=== PATIENT | male | born 1975 | race Caucasian/White ===

== ENCOUNTER 2018-09-13 15:41 | Emergency (ER) | payer BC ==
[~2018-09-13] VITALS: Ht 172.7 cm; Wt 88.4 kg
[2018-09-13 15:44] VITALS: BP 126/75; PULSE 81; RESP 20; Ht 172.7 cm; Wt 88.4 kg
[2018-09-13] MEDS ORDERED: LIDOCAINE 1% (MDV) 10 ML INJ INJ STA (16:33)
--- NOTE | 2018-09-13 16:49 | ERD ---
ER Documentation Chief Complaint Chief Complaint R gomez deep laceration d/t ladder fell on leg HPI 43-year-old male presents with complaint of laceration to right gomez. Patient states that happened hour ago on the ladder dropped on his leg. Patient does not think he is up-to-date on his tetanus. Patient denies numbness or tingling. Patient is ambulatory and denies any pain. Patient denies past medical history. Denies allergies. Denies medications. No surgeries. Denies social. ROS All systems reviewed and are negative except as per history of present illness. Medications Home Meds Active Scripts Cephalexin* (Keflex*) 500 Mg Capsule, 500 MG PO QID for laceration for 5 Days, CAP 0 Refills Prov:VIRGIE MENDEZ 09/13/18 Allergies Allergies: Coded Allergies: No Known Allergy (Unverified , 09/13/18) PMhx/Soc Medical and Surgical Hx: pt denies Surgical Hx History of Surgery: No Anesthesia Reaction: No Hx Neurological Disorder: No Hx Respiratory Disorders: Yes (asthma) Hx Cardiac Disorders: No Hx Psychiatric Problems: No Hx Miscellaneous Medical Probl: No Hx Alcohol Use: No Hx Substance Use: No Hx Tobacco Use: No Smoking Status: Never smoker FmHx Family History: No diabetes, No coronary disease, No other Physical Exam Vitals Vital Signs Date Temp Pulse Resp B/P (MAP) Pulse Ox O2 O2 Flow FiO2 Time Delivery Rate 09/13/18 98.0 81 20 126/75 98 15:44 (92) Physical Exam Const: No acute distress Resp: Clear to auscultation bilaterally Cardio: Regular rate and rhythm, no murmurs Ext: 5 cm full-thickness laceration noted to the right gomez. Distal sensation, circulation, and range of movement intact. No foreign bodies noted in wound. Patient has full ROM of ankle and knee and is ambulatory. No signs of fracture. Neur: Awake and alert Psych: Normal Mood and Affect Results 24 hrs Current Medications Medications Dose Sig/Liam Start Time Status Last (Trade) Ordered Route PRN Stop Time Admin Dose Reason Admin Diphtheria/ 0.5 ml ONCE ONCE 09/13/18 DC 09/13/18 Tetanus/Acell IM* 17:00 16:51 Pertussis 09/13/18 (Adacel) 17:01 Lidocaine 10 ml ONCE STAT 09/13/18 DC HCl INJ 16:33 (Lidocaine 09/13/18 1% (Mdv) 10 16:52 ml) Lidocaine 5 ml ONCE ONCE 09/13/18 DC (Xylocaine INJ 17:00 1% (f)) 09/13/18 17:01 Procedures/MDM ER Course: Laceration Repair by me: Anesthesia: 1% lidocaine locally Location: Right anterior tibula area Tendon/Joint/Nerves: No injury Foreign body: None detected after copious irrigation and exploration Technique: 9 Simple Interrupted Sutures. 4 sub q Complexity: No subcutaneous sutures/mucosal repair/edge excision Post Closure Length: 5 cm MDM: 43-year-old male presents with complaint of laceration to right gomez. Patient states that happened hour ago on the ladder dropped on his leg. Patient does not think he is up-to-date on his tetanus. Patient denies numbness or tingling. Patient's bleeding was easily controlled in the department and there is no indication of anemia. No evidence of compartment syndrome, neurologic injury, vascular injury, open joint, tendon laceration, or foreign body. Patient is appropriate for outpatient follow up. 48 hour wound check. Scar minimization instructions given. Rx for Keflex 500mg. Patient discharged with strict ER precautions. Patient advised to follow up with PMD. RTC in 2 days for wound check. All questions answered at discharge. Departure Diagnosis: Primary Impression: Laceration Condition: Stable DOUGVIRGIE MCDONALD Sep 13, 2018 16:49
[2018-09-13] MEDS ORDERED: LIDOCAINE 1% (MPF) 5 ML VIAL INJ ONE (17:00)
[2018-09-13] MEDS ORDERED: DIPHTH/TET/ACEL PERTUSS (ADULT) 0.5 ML VIAL IM* ONE (17:00)
[2018-09-13] MEDS ORDERED: CEPH-443 PO (17:38)
== END 2018-09-13 17:45 | disposition home or self-care (01) ==
LOC: FTE 15:41
DX: S81.811A Laceration without foreign body, right lower leg, initial encounter (principal); J45.909 Unspecified asthma, uncomplicated; W20.8XXA Other cause of strike by thrown, projected or falling object, initial encounter; Y92.9 Unspecified place or not applicable; Z23 Encounter for immunization
CPT/HCPCS: 90471; 90715

== ENCOUNTER 2018-09-15 08:57 | Emergency (ER) | payer BC ==
[~2018-09-15] VITALS: Wt 88.1 kg
[~2018-09-15 08:57] MED LIST: CEPH-443 PO
[2018-09-15 09:00] VITALS: BP 126/76; PULSE 76; RESP 18
--- NOTE | 2018-09-15 11:52 | ERD ---
ER Documentation Chief Complaint Chief Complaint RIGHT GHOTRA WOUND CHECK HPI 43-year-old male presents to the emergency department for evaluation of a repaired laceration that was done 2 days prior to being seen. Patient denies any fevers, increased pain. States that he has been taking antibiotics ROS All systems reviewed and are negative except as per history of present illness. Medications Home Meds Active Scripts Cephalexin* (Keflex*) 500 Mg Capsule, 500 MG PO QID for laceration for 5 Days, CAP 0 Refills Prov:VIRGIE MENDEZ 09/13/18 Allergies Allergies: Coded Allergies: No Known Allergy (Unverified , 09/13/18) PMhx/Soc History of Surgery: No Anesthesia Reaction: No Hx Neurological Disorder: No Hx Respiratory Disorders: Yes (asthma) Hx Cardiac Disorders: No Hx Psychiatric Problems: No Hx Miscellaneous Medical Probl: No Hx Alcohol Use: No Hx Substance Use: No Hx Tobacco Use: No Physical Exam Vitals Vital Signs Date Temp Pulse Resp B/P (MAP) Pulse Ox O2 O2 Flow FiO2 Time Delivery Rate 09/15/18 98.2 76 18 126/76 99 09:00 (93) Physical Exam Const: No acute distress Head: Atraumatic Eyes: Normal Conjunctiva ENT: Normal External Ears, Nose and Mouth. Neck: Full range of motion. No meningismus. Resp: Clear to auscultation bilaterally Cardio: Regular rate and rhythm, no murmurs Abd: Soft, non tender, non distended. Normal bowel sounds Skin: Sutures intact Back: No midline or flank tenderness Ext: No cyanosis, or edema Neur: Awake and alert Psych: Normal Mood and Affect Procedures/MDM Patient presents to the ER for a wound check l. No dehiscence or infection seen. Discussed to return in about 10 days for suture removal Departure Diagnosis: Primary Impression: Encounter for wound re-check Condition: Stable Patient Instructions: Wound Care Referrals: NO PRIMARY,CARE PHYSICIAN (PCP) BERNA NELSON PA-C Sep 15, 2018 11:52
== END 2018-09-15 10:02 | disposition home or self-care (01) ==
LOC: FTE 08:57
DX: Z48.01 Encounter for change or removal of surgical wound dressing (principal); J45.909 Unspecified asthma, uncomplicated
CPT/HCPCS: 99281